=== PATIENT | male | born 2000 | race Caucasian/White ===

== ENCOUNTER 2019-01-22 07:48 | Emergency (ER) | payer OTHER ==
[2019-01-22] MEDS ORDERED: ONDANSETRON 4 MG ORAL DISINTEGRATING TAB (Q0162 PER 1MG) PO ONE (08:00)
[2019-01-22] MEDS ORDERED: ACETAMINOPHEN 500 MG TAB PO ONE (08:30)
--- NOTE | 2019-01-22 08:36 | REP ---
CT brain: 01/22/2019. Indication: Head trauma. Comparison: None. Technique: Unenhanced axial images of the brain were obtained from skull base to vertex. Findings: There is no intracranial hemorrhage, acute cortical infarction, mass effect or hydrocephalous. There is no acute calvarial fracture. Slightly low lying cerebellar tonsils are noted. There is no mass effect on the brainstem. Impression: No acute intracranial process. Electronically Signed by Harish Ospina DO 01/22/2019 08:28 A
--- NOTE | 2019-01-22 08:43 | REP ---
CT cervical spine: 01/22/2019. Indication: Cervical spine trauma. Comparison: None. Technique: Axial images of the cervical spine were obtained with sagittal and coronal reconstructions provided. There is no acute fracture, subluxation or dislocation. There is straightening of the cervical lordosis which is nonspecific. No hemorrhage is noted within the spinal canal or paraspinal soft tissues. The visualized lungs are clear. Impression: No acute post traumatic injury of the cervical spine. Electronically Signed by Harish Ospina DO 01/22/2019 08:35 A
[2019-01-22] MEDS ORDERED: ONDA4TAB6 PO (08:51)
[2019-01-22] MEDS ORDERED: IBUP-1022 PO (08:51)
[2019-01-22] MEDS ORDERED: KETOROLAC 60 MG/2 ML VIAL (J1885) IM ONE (09:00)
[2019-01-22 09:02] VITALS: BP 129/72
== END 2019-01-22 09:14 | disposition home or self-care (01) ==
LOC: M ED 07:48 → EDBD 07:48 → M ED 09:14
DX: S09.90XA Unspecified injury of head, initial encounter (principal); Y04.0XXA Assault by unarmed brawl or fight, initial encounter; Y92.89 Other specified places as the place of occurrence of the external cause; Y93.9 Activity, unspecified; Y99.9 Unspecified external cause status
CPT/HCPCS: 70450; 72125; 96374; 99284; J1885; Q0162

== ENCOUNTER 2019-05-03 07:17 | Emergency (ER) | payer OTHER ==
[~2019-05-03] VITALS: Ht 188 cm; Wt 90.9 kg
[~2019-05-03 07:17] MED LIST: IBUP-1022 PO; ONDA4TAB6 PO
--- NOTE | 2019-05-03 08:14 | REP ---
PA and lateral chest: There are no comparisons. The lung manley are clear. The cardiac size is normal. The latisha, mediastinum, and skeletal structures are unremarkable. Impression: Negative PA and lateral chest. Electronically Signed by Jeancarlos Nicholson MD 05/03/2019 08:05 A
[2019-05-03 08:18] LABS: BASO # 0.1 10^3/uL (0.0-0.2); BASO % 1.5 % (0.0-1.0); EOS # 0.1 10^3/uL (0.0-0.5); EOS % 2.2 % (0.0-3.0); HEMATOCRIT 44.2 % (42.0-52.0); HEMOGLOBIN 14.3 g/dl (13.5-17.5); LYMPH # 2.2 10^3/uL (1.5-5.0); LYMPH % 47.2 % (24.0-44.0); MEAN CORPUSCULAR HEMOGLOBIN 29.6 pg (27.0-33.0); MEAN CORPUSCULAR HGB CONC 32.4 g/dl (32.0-36.5); MEAN CORPUSCULAR VOLUME 91.5 fl (80.0-96.0); MONO # 0.5 10^3/uL (0.0-0.8); MONO % 9.8 % (0.0-5.0); NEUTROPHILS # 1.8 10^3/uL (1.5-8.5); NEUTROPHILS % 39.3 % (36.0-66.0); PLATELET COUNT, AUTOMATED 204 10^3/uL (150-450); RED BLOOD COUNT 4.83 10^6/uL (4.30-6.10); WHITE BLOOD COUNT 4.6 10^3/uL (4.0-10.0)
[2019-05-03 08:44] LABS: ALBUMIN 3.9 GM/DL (3.2-5.2); ALT/SGPT 20 U/L (12-78); BILIRUBIN,DIRECT < 0.1 MG/DL (0.0-0.2); BILIRUBIN,TOTAL 0.3 MG/DL (0.2-1.0); BLOOD UREA NITROGEN 13 MG/DL (7-18); CARBON DIOXIDE LEVEL 30 MEQ/L (21-32); CHLORIDE LEVEL 106 MEQ/L (98-107); CK-MB VALUE MASS < 1.0 NG/ML (<3.6); CPK CREATINE PHOSPHOKINASE 103 U/L (39-308); CREATININE FOR GFR 0.83 MG/DL (0.70-1.30); GLUCOSE, FASTING 65 MG/DL (70-100); LIPASE 207 U/L (73-393); MB/CK RELATIVE INDEX 0.97 (< OR =4); POTASSIUM SERUM 3.5 MEQ/L (3.5-5.1); SODIUM LEVEL 141 MEQ/L (136-145); TOTAL PROTEIN 7.5 GM/DL (6.4-8.2); TROPONIN I < 0.02 NG/ML (< 0.10)
[2019-05-03] MEDS ORDERED: BREAMIS10 MC (09:33)
[2019-05-03] MEDS ORDERED: VENTAER INH (09:33)
[2019-05-03 09:40] VITALS: BP 125/74
--- NOTE | 2019-05-04 16:12 | ECGEPIP ---
[facility] - ED Test Date: 2019-05-03 Pat Name: IVIS WALLS Department: Room: - Gender: Male [employer]: CHELSI : 2000 Requested By: MANUEL CAI Order Number: [id number] Reading MD: Shemar Fischer Measurements Intervals Roberta Rate: 46 P: -7 DE: 127 QRS: 63 QRSD: 110 T: 38 QT: 405 QTc: 357 Interpretive Statements SINUS BRADYCARDIA NONSPECIFIC ST T WAVE CHANGES NO PRIOR ECG FOR COMPARISON Electronically Signed on 05-04-2019 16:12:25 EST by Shemar Fischer
== END 2019-05-03 09:40 | disposition home or self-care (01) ==
LOC: M ED 07:17
DX: R07.89 Other chest pain (principal); R06.02 Shortness of breath; Z87.891 Personal history of nicotine dependence

== ENCOUNTER → 2019-08-14 | Outpatient (CLI) | payer OTHER ==
[~2019-08-14] MED LIST changes: +BREAMIS10 MC; +VENTAER INH
--- NOTE | 2019-08-14 15:46 | PFTRPT ---
Site: [facility], [address] [place] [address], [id number] ID: [id number] Name: IVIS WALLS Visit Date: 08/14/2019 Second ID: [id number] Referring Doctor: Marjorie Ya PA-C Reviewing Doctor: Rinku Chinchilla MD Cutter Banana Room: Hayley Alfred Age: 18 : 2000 Sex: Male Race: Height: 74.00 Inches Weight: 200.00 Lbs BSA: 2.17 Order IDs: [id number] Requested Test(s): <RESP-PFT.DLCO> Diagnosis: DYSPNEA, UNSPECIFIED test meet the ATS standards for acceptability and repeatability. Review Status: Not Reviewed Pre-Bronch Post-Bronch Pred Actual %Pred Actual %Chng SPIROMETRY FVC (L) 6.29 5.81 92 FEV1 (L) 5.19 5.21 100 FEV1/FVC (%) 84 90 106 FEF 25% (L/sec) 8.99 9.31 103 FEF 50% (L/sec) 5.85 7.18 122 FEF 75% (L/sec) 2.45 3.75 152 FEF 25-75% (L/sec) 5.32 6.44 121 FEF Max (L/sec) 11.02 10.08 91 FIVC (L) 4.17 FIF 50% (L/sec) 5.74 2.31 40 FIF Max (L/sec) 2.50 MVV (L/min) 203 180 88 Expiratory Time (sec) 5.90 Back Extrap Vol (L) 0.21 Time To FEFmax (sec) 0.107 LUNG VOLUMES SVC (L) 6.03 5.78 95 IC (L) 3.91 3.36 85 ERV (L) 2.12 2.42 114 TGV (L) 3.77 3.49 92 RV (Pleth) (L) 1.65 1.06 64 TLC (Pleth) (L) 7.68 6.85 89 RV/TLC (Pleth) (%) 20 16 77 DIFFUSION DLCOunc (ml/min/mmHg) 39.12 46.03 117 DLCOcor (ml/min/mmHg) 39.12 46.57 119 DL/VA (ml/min/mmHg/L) 5.09 6.49 127 VA (L) 7.68 7.17 93 BHT (sec) 10.67 IVC (L) 5.52 TLC (SB) (L) 7.32 AIRWAYS RESISTANCE Raw (cmH2O/L/s) 1.45 0.66 45 Gaw (L/s/cmH2O) 1.03 1.56 151 sRaw (cmH2O*s) 4.76 2.60 54 sGaw (1/cmH2O*s) 0.20 0.39 197 BLOOD GASES Hgb (gm/dL) 14.2
== END ==
LOC: M CARPUL 15:08
PROVIDERS: ATTEND Physician Assistant
DX: R06.00 Dyspnea, unspecified (principal)

== ENCOUNTER 2020-11-08 23:49 | Emergency (ER) | payer OTHER ==
[~2020-11-08] VITALS: Ht 185.4 cm; Wt 113.8 kg
[2020-11-08 23:49] VITALS: BP 137/93
== END 2020-11-09 02:09 | disposition left against medical advice (07) ==
LOC: M ED 23:49
DX: Z53.21 Procedure and treatment not carried out due to patient leaving prior to being seen by health care provider (principal)